=== PATIENT | female | born 1955 | race Caucasian/White ===

== ENCOUNTER → 2018-08-13 | Outpatient (CLI) | payer OTHER ==
[~2018-08-13] MED LIST: CAFF200T69 PO; CET10 PO; DULO30CA35 PO; MOMR ENA; VENL75TA PO
--- NOTE | 2018-08-14 11:02 | RADIOLOGY IMAGING REPORT ---
FACILITY: [facility] PATIENT NAME: GIOVANNA GTZ : [id number] MR: [id number]: [id number] EXAM DATE: [id number] ORDERING PHYSICIAN: AGA KIM TECHNOLOGIST: Bertha Zhang PROCEDURE: BILATERAL DIGITAL SCREENING MAMMOGRAM WITH CAD ASSISTED INTERPRETATION & 3D TOMOSYNTHESIS REASON FOR STUDY: Screening. FAMILY HISTORY OF BREAST CANCER: None. BREAST PROCEDURES/TREATMENTS: None. COMPARISON: 09/02/2011 dating back to 2008. VIEWS OBTAINED: 2D & 3D full field CC & MLO. BREAST DENSITY: The breasts are heterogeneously dense. MAMMOGRAM FINDINGS: Scattered asymmetries are essentially stable. There is no dominant mass, suspicious microcalcifications or persistent areas of architectural distortion. IMPRESSION: BIRADS 1: Negative. DIAGNOSTIC CATEGORY 1--NEGATIVE. RECOMMENDATIONS: ROUTINE MAMMOGRAM AND CLINICAL EVALUATION. Dictated by: Vargas Chavez M.D. on 08/14/2018 at 9:37 Transcribed by: JEFF on 08/14/2018 at 10:17 Approved by: Vargas Chavez M.D. on 08/14/2018 at 10:59 [facility]
== END ==
LOC: MAMO 01:03
PROVIDERS: ATTEND Physician Assistant
DX: Z12.31 Encounter for screening mammogram for malignant neoplasm of breast (principal)
CPT/HCPCS: 77063; 77067